=== PATIENT | male | born 1995 | race Caucasian/White ===

== ENCOUNTER 2021-10-13 15:23 | Emergency (ER) | payer MEDICAID ==
[~2021-10-13] VITALS: Ht 182.9 cm; Wt 174.7 kg
[2021-10-13 15:39] VITALS: BP 163/112
--- NOTE | 2021-10-13 15:45 | NUR ---
PT AMB TO BED 12
[2021-10-13] MEDS ORDERED: KETOROLAC 60 MG/2 ML VIAL IM ONE (16:15)
--- NOTE | 2021-10-13 16:30 | NUR ---
XRAY AT PATIENT BEDSIDE
--- NOTE | 2021-10-13 16:35 | NUR ---
26 y/o M BIB self from home c/o R calf pain s/p moving a pallet of stones at home. Patient A&Ox4, ambulatory, states around noon he was pushing a pallet of stones weighting approxmiately 2000 lbs when he felt a pop to his right calf. Patient states 04/16, "tight/constant," non-radiating pain. Denies medications prior to arrival. Pedal pulses in tact. States numbness to RLE that worsens with movement/ankle rotation. Limited ROM of R ankle/foot d/t pain. Bed locked in lowest position, side rails x 1. PMH/Sx/Meds: Denies NKDA
[2021-10-13] MEDS ORDERED: IBUP-2213 PO (17:22)
--- NOTE | 2021-10-13 17:40 | NUR ---
PT PLACED IN FABRICATED ORTHO GLASS RIGHT POSTERIOR SHORT LEG SPLINT WRAPPED WITH 4" EASTON WRAPS X3. CMS WNL BEFORE AND AFTER. PA NOTIFIED. PT ALSO GIVEN CRUTCHES THAT WERE ADJUSTED TO PT'S SIZE AND HEIGHT AND PT STATES THAT THEY KNOW HOW TO PROPERLY USE THEM. PT SHOWED PROPER DEMNESTRATION ON HOW TO USE CRUTCHES AND PA NOTIFIED.
--- NOTE | 2021-10-13 17:46 | NUR ---
Patient discharged with v/s stable. Written and verbal after care instructions given and explained. Patient alert, oriented and verbalized understanding of instructions. Ambulatory with steady gait. All questions addressed prior to discharge. ID band removed. Patient advised to follow up with PMD. Rx of IBUPROFEN given. Opportunity to ask questions provided and answered.
== END 2021-10-13 17:45 | disposition home or self-care (01) ==
LOC: MED 15:23
DX: S86.911A Strain of unspecified muscle(s) and tendon(s) at lower leg level, right leg, initial encounter (principal); I10 Essential (primary) hypertension; Z79.1 Long term (current) use of non-steroidal anti-inflammatories (NSAID); X58.XXXA Exposure to other specified factors, initial encounter; Y92.009 Unspecified place in unspecified non-institutional (private) residence as the place of occurrence of the external cause; Y93.89 Activity, other specified; Y99.8 Other external cause status
CPT/HCPCS: 29515; 73590; 96372; 99283; J1885